=== PATIENT | male | born 1960 | race American Indian/Alaskan Native ===

== ENCOUNTER 2024-05-04 17:32 | Emergency (ER) | payer OTHER ==
[2024-05-04 18:34] LABS: BASOPHILS PERCENT AUTO 0.4 % (0.0-1.0); EOSINOPHILS ABSOLUTE AUTO 0.1 K/mm3 (0.0-0.4); EOSINOPHILS PERCENT AUTO 0.8 % (0.0-6.0); IMMATURE GRAN ABSOLUTE AUTO 0.04 K/mm3 (0.00-0.05); IMMATURE GRAN PERCENT AUTO 0.4 % (0.0-0.4); LYMPHOCYTES ABSOLUTE AUTO 1.4 K/mm3 (1.0-4.8); LYMPHOCYTES PERCENT AUTO 13.2 % (24.0-44.0); MEAN PLATELET VOLUME 8.8 fl (9.4-12.4); MONOCYTES ABSOLUTE AUTO 0.5 K/mm3 (0.0-0.8); MONOCYTES PERCENT AUTO 4.7 % (0.0-8.0); NEUTROPHILS ABSOLUTE AUTO 8.3 K/mm3 (1.8-7.7); NEUTROPHILS PERCENT AUTO 80.5 % (41.0-71.0); PLATELET COUNT,PLT 315 K/mm3 (150-400); WHITE BLOOD CELL COUNT,WBC 10.34 K/mm3 (3.9-11.3)
[2024-05-04 18:40] LABS: PROTHROMBIN TIME 10.6 SECONDS (9.7-12.0)
[2024-05-04] MEDS ORDERED: Ondansetron 4 MG in Sodium Chloride 0.9% 50 ML IV ONE (18:42)
[2024-05-04] MEDS ORDERED: Naloxone 0.4 MG/ML SDV IVPUSH PRN (18:43)
[2024-05-04] MEDS: Sodium Chloride 0.9% 10 ML Syringe FLUSH PRN (18:56)
[2024-05-04] MEDS: Ondansetron 4 MG/2 ML SDV IVPUSH ONE (18:56)
[2024-05-04] MEDS: Aspirin 81 MG Tab.Chew PO ONE (18:56)
[2024-05-04] MEDS: Morphine 2 MG/ML SYRINGE IVPUSH ONE (18:56)
[2024-05-04 18:58] LABS: A/G RATIO 1.3 (1-2); ALBUMIN 3.9 g/dl (3.4-5.0); ANION GAP 14.7 (5-15); BILIRUBIN TOTAL 0.5 mg/dL (0.2-1.0); CALCIUM 8.6 mg/dL (8.5-10.1); EST CRCL DRUG DOSING (CG) 77.92 mL/min; MAGNESIUM 1.8 mg/dL (1.8-2.4); POTASSIUM,K 3.7 mEq/L (3.5-5.1); PROTEIN TOTAL,TP 6.9 g/dl (6.4-8.2)
[2024-05-04] MEDS: Iopamidol 755 Mg/ML 100 ML Bottle IVPUSH ONE (19:25)
[2024-05-04] MEDS: Sodium Chloride 0.9% 100 ML IV SCH (19:25)
[2024-05-04 19:26] LABS: RED BLOOD CELL COUNT 4.5 M/mm3 (4.52-5.90)
[2024-05-04 19:27] LABS: HEMATOCRIT 42.5 % (42.0-52.0); HEMOGLOBIN 14.5 gm/dl (14.0-18.0); MEAN CORPUSCULAR HEMOGLOBIN 32.2 pg (28.0-32.0); MEAN CORPUSCULAR HGB CONC 34.1 g/dl (32.0-36.0); MEAN CORPUSCULAR VOLUME 94.4 fl (83.0-99.0)
[2024-05-04] MEDS: Sodium Chloride 0.9% 1,000 ML IV ONE (22:13)
[2024-05-04] MEDS: Alum Hydrox/Mag Hydrox/Simeth 30 ML, Lidocaine 2% 15 ML PO ONE (22:13)
[2024-05-04] MEDS: Famotidine 20 MG/2 ML SDV IVPUSH ONE (22:14)
== END 2024-05-04 23:30 | disposition home or self-care (01) ==
LOC: JD.ED 17:32
DX: K30 Functional dyspepsia (principal); R07.89 Other chest pain; Z79.899 Other long term (current) drug therapy
CPT/HCPCS: 36415; 71275; 71275-26; 72191; 72191-26; 74175; 74175-26; 80053; 80307; 83690; 83735; 83880; 84484; 85025; 85379; 85610; 93005; 93010; 96361; 96374; 96375; 99284; 99284-25; A9270-GY; J2270; J2405; J3490; J7030; Q9967